=== PATIENT | female | born 1985 | race Caucasian/White ===

== ENCOUNTER → 2020-09-17 | Outpatient (CLI) | payer BC ==
[~2020-09-17] MED LIST: IBU600 MG PO; PERCOCET 325 MG1 TA2 PO; PRENATAL
== END ==
LOC: ZCOL.LAB 10:11
DX: Z20.822 Contact with and (suspected) exposure to COVID-19 (principal)

== ENCOUNTER 2020-09-22 06:55 | Inpatient (IN) | payer BC ==
[~2020-09-22] VITALS: Ht 162.6 cm; Wt 72.3 kg
[2020-09-22] VITALS (57 sets, daily range): BP systolic 97–161; BP diastolic 53–100; PULSE 63–156; TEMP 97.1–97.9
--- NOTE | 2020-09-22 07:00 | NUR ---
PATIENT HERE FOR INDUCTION TO LR4. PATIENT HERE WITH . PATIENT CHANGED INTO GOWN, ON EFM, ASSESMENT COMPLETE, IV STARTED, CONSENTS SIGNED. QUESTIONS ANSWERED. PATIENT STATES SHE HAS HAD MILD CONTRACTIONS. DENIES LEAKING OF FLUID OR BLEEDING. PATIENT STATES GENDER UNKNOWN FOR BABY.
[2020-09-22] MEDS ORDERED: PRENATAL (07:31)
[2020-09-22 07:59] LABS: BASO % 0.3 % (0.0-2.0); EOS # 0.1 (0.0-0.7); EOS % 1.3 % (0-4.0); GRAN # 6.6 (1.4-6.5); GRAN % 65.8 % (42.2-75.2); HEMATOCRIT 41.7 % (37.0-47.0); HEMOGLOBIN 14.3 g/dl (12.5-16.0); LYMPH # 2.5 (1.2-3.4); LYMPH % 24.9 % (20.0-51.0); MEAN CELL VOLUME 89 fl (80.0-100.0); MEAN CORPUSCULAR HEMOGLOBIN 30 pg (27.0-31.0); MEAN CORPUSCULAR HGB CONC 34 g/dl (33.0-37.0); MEAN PLATELET VOLUME 11.2 fl (7.4-10.4); MONO # 0.8 (0.1-0.6); MONO % 7.5 % (1.7-9.3); PLATELET COUNT 245 K/mm3 (130-400); RED BLOOD COUNT 4.71 M/mm3 (4.10-5.30); REDCELL DISTRIBUTION WIDTH-CV 13.3 % (11.5-14.5)
--- NOTE | 2020-09-22 16:04 | NUR ---
0352-5381- HEART TONES IN 90S THEN DROPPING TO 70S-80S. PITOCIN OFF , SVE PREFORMED, O2 ON, R BOLUS STARTED. FSE PLACED, REPOSITIONED X4, WL. WR, LL, RL, JIMBO
--- NOTE | 2020-09-22 18:27 | NUR ---
1826- ROLES IN ROOM TO PERFORM SVE, /-2. 1826- DR. ECHEVARRIA DISCUSSES PLAN OF CARE WITH PT AND FOB,UNDERSTANDING VERBALIZED. ORDERS TO RESTART PITOCIN AT 6MU AND INCREASE BY 2MU EVERY 15 MINUTES. 1829- PT REPOSITIONED INTO [facility].
[2020-09-23] VITALS (23 sets, daily range): BP systolic 103–148; BP diastolic 55–89; PULSE 62–115; TEMP 97.8–98.4
--- NOTE | 2020-09-23 03:40 | NUR ---
2308- PT COMPLETE/-1. WILL LABOR DOWN. 2340- PT COMPLETE/0 AFTER LABORING DOWN. PT BEGINS PUSHING WITH THIS NURSE. 0010- [place] DC'D AT THIS TIME, 200MLS DARK URINE OUT. [id number]- BABY IS ASYNCLITIC, PUSHING POSITIONS CHANGED THROUGHOUT THIS TIME FROM RIGHT AND LEFT SIDED PUSHING, PUSHING IN SEMIFOWLERS, AND USING THE SQUAT BAR. 2345- DR ECHEVARRIA NOTIFIED OF SVE OF COMPLETE AND THAT PT HAS STARTED PUSHING WITH THIS NURSE. 0145- DR. ECHEVARRIA CALLED TO COME ASSESS PT FOR POSSIBLE NEED FOR ASSISTED DELIVERY. WILL COME TO ASSESS. 0203- DR ECHEVARRIA IN ROOM TO EVALUATE PT. DR ECHEVARRIA DISCUSSES WITH PT AND FOB OPTIONS FOR DELIVERY, UNDERSTANDING VERBALIZED BY PT AND FOB OF OPTIONS. PT AND DR. ECHEVARRIA AGREE TO ATTEMPT FORCEP ASSISTED DELIVERY. 0207-Jaden MALCOLM CRNA NOTIIFED OF PLANS TO ATTEMPT FORCEP DELIVERY, PT UNCONTROLLED WITH CONTRACTONS,DR. ECHEVARRIA REQUESTS THAT HER EPIDURAL BE DOSED PRIOR TO FORCEPS ATTEMPT. Jaden MALCOLM CRNA ON HER WAY TO THE ROOM. 0223- PT COMFORTABLE WITH EPIDURAL, DR. ECHEVARRIA IN ROOM TO ATTEMPT FORCEPS DELIVERY. 0227- FORCEPS IN PLACE BY DR. ECHEVARRIA. PT BEGINS PUSHING. 0229- FORCEPS REMOVED, PT CONTINUES PUSHING. 0231- FORCEPS ASSISTED DELIVERY OF VIABLE BABY GIRL. BABY TO MOTHER'S CHEST, DRIED AND STIMULATED, BABY CARES ASSUMED BY Stalin ESQUIVEL RN. 0234- SPONTANEOUS DELIVERY OF INTACT PLACENTA. PITOCIN STARTED AT 333ML/HR PER PROTOCOL. 0237- 800MCG CYTOTEC GIVEN RECTALLY BY DR. ECHEVARRIA FOR INCREASED BLEEDING. 0241- DR. ECHEVARRIA ATTEMPTS TO REPAIR LEFT SIDEWALL LACERATION, PT PAIN NOT WELL MANAGED. Jaden MALCOLM CRNA IN ROOM AND GIVES 100MG OF FENTANYL IV PRIOR TO CONTINING REPAIR. 0319- DR ECHEVARRIA UNABLE TO REPAIR LEFT SIDEWALL LACERATION IN LABOR ROOM. PT TO OR FOR REPAIR. EPIDURAL REMOVED BY LANDY TEIXEIRA IN OR AND SPINAL PLACED. DR. ECHEVARRIA REPAIRS SIDEWALL LACERATION AND 2ND DEGREE PERINEAL LACERATION WITHOUT DIFFICULTY. 0330- 30MG TORADOL GIVEN BY Jaden MALCOLM CRNA IN OR FOLLOWING REPAIR. 0340- PT TO LABOR ROOM TO CONTINUE RECOVERY.
--- NOTE | 2020-09-23 05:20 | NUR ---
PT UP TO BATHROOM, UNABLE TO VOID AT THIS TIME. ASSISTED WITH PERICARE, PAD AND MESH UNDERWEAR ON. PT TO VIA WHEELCHAIR. ORIENTED TO ROOM, DENIES PAIN AT THIS TIME, BABY REMIANS IN NSY SO PT CAN REST.
--- NOTE | 2020-09-23 09:05 | NUR ---
Initial visit; Patient thanked [employer] for offering congratulations and God's blessings for the of her daughter. [employer] thanked family for choosing [facility].
[2020-09-24 08:00] VITALS: BP 120/70; PULSE 89; TEMP 98.1
--- NOTE | 2020-09-24 08:00 | NUR ---
Rests in bed, alert. Asking for baby to come to room. 0810 Baby brought to room.
[2020-09-24] MEDS ORDERED: PERCOCET 325 MG1 TA2 PO (08:24)
[2020-09-24] MEDS ORDERED: IBU600 MG PO (08:24)
--- NOTE | 2020-09-24 15:00 | NUR ---
Rests in bed, alert. Discharge instructions given, verbalizes understanding.
== END 2020-09-24 15:15 | disposition home or self-care (01) | DRG 807 ==
LOC: LDR 06:55 → OB 10:11
PROVIDERS: ADMIT Obstetrics & Gynecology
PROC: 10D07Z6 Extraction of Products of Conception, Vacuum, Via Natural or Artificial Opening (ICD-10-PCS; principal; 2020-09-22)
PROC: 0KQM0ZZ Repair Perineum Muscle, Open Approach (ICD-10-PCS; 2020-09-22)
PROC: 10907ZC Drainage of Amniotic Fluid, Therapeutic from Products of Conception, Via Natural or Artificial Opening (ICD-10-PCS; 2020-09-22)
PROC: 3E033VJ Introduction of Other Hormone into Peripheral Vein, Percutaneous Approach (ICD-10-PCS; 2020-09-22)
DX: O48.0 Post-term pregnancy (principal); Z37.0 Single live birth; O75.81 Maternal exhaustion complicating labor and delivery; Z3A.40 40 weeks gestation of pregnancy; O70.1 Second degree perineal laceration during delivery
CPT/HCPCS: J1885; J2400; J2405; J2590; J2795; J3010; J7120